=== PATIENT | female | born 1985 | race Caucasian/White ===

== ENCOUNTER → 2016-06-29 | Outpatient (CLI) | payer OTHER ==
[~2016-06-29] MED LIST: ACET50TA PO; ANUS2.5C2 PR; DOCU10ELUD PO; IBUP600T26 PO; LANSOIN TOP; MOM30SS PO; NORCOTAB PO; PRENTAB74 PO
[2016-06-29 19:09] LABS: PROGESTERONE 10.8 NG/ML
== END ==
LOC: M LAB 17:11
PROVIDERS: ATTEND Obstetrics & Gynecology
DX: Z32.01 Encounter for pregnancy test, result positive (principal)

== ENCOUNTER → 2016-07-01 | Outpatient (CLI) | payer OTHER | LOC: M LAB 09:30 | PROVIDERS: ATTEND Obstetrics & Gynecology | DX: Z32.01 Encounter for pregnancy test, result positive (principal) ==

== ENCOUNTER → 2016-08-25 | Outpatient (REF) | payer OTHER | LOC: M LAB REF 17:01 | PROVIDERS: ATTEND Advanced Practice Midwife | DX: Z34.81 Encounter for supervision of other normal pregnancy, first trimester (principal) ==

== ENCOUNTER → 2016-09-15 | Outpatient (CLI) | payer OTHER ==
[2016-09-15 10:25] LABS: ALT/SGPT 21 U/L (12-78); AST/SGOT 15 U/L (15-37); BILIRUBIN,TOTAL 0.2 MG/DL (0.2-1.0); CREATININE FOR GFR 0.55 MG/DL (0.55-1.02); GLOMERULAR FILTRATION RATE > 60.0 (>60); URIC ACID 3.5 MG/DL (2.6-6.0)
[2016-09-15 10:43] LABS: CREATININE CLEARANCE, URINE 265.3 ML/MIN (75-115); CREATININE, SERUM 0.6 MG/DL (0.6-1.0)
== END ==
LOC: M LAB 08:19
PROVIDERS: ATTEND Advanced Practice Midwife
DX: O16.1 Unspecified maternal hypertension, first trimester (principal)

== ENCOUNTER → 2016-09-30 | Outpatient (CLI) | payer OTHER ==
--- NOTE | 2016-09-30 17:22 | REP ---
OB ULTRASOUND: Real-time sonographic evaluation of the gravid uterus is performed. There is a single living intrauterine gestation. Estimated gestational age 19 weeks, EDC 02/24/2017. BPD 44 mm = 19 weeks 1 day HC 161 mm = 18 weeks 6 days AC 137 mm = 19 weeks 1 day FL 30 mm = 19 weeks 2 days HC/AC ratio 1.17, within normal range. Estimated weight 280 grams, 55th percentile. Cervix closed and measures 4.2 cm in length. heart rate 147 beats per minute. SEEN/GROSSLY UNREMARKABLE Lateral ventricles yes Posterior fossa yes Upper lip yes Four-chamber heart yes LVOT yes RVOT no Stomach yes Cord insertion yes Three vessel cord no Kidneys no Bladder yes Spine yes. Limited transverse images. position: Vertex. Placenta: Anterior and grade 0 with no previa or abruption. Amniotic fluid: Within normal limits. Incomplete
== END ==
LOC: M SMT 14:49
PROVIDERS: ATTEND Obstetrics & Gynecology
DX: Z34.82 Encounter for supervision of other normal pregnancy, second trimester (principal); Z3A.19 19 weeks gestation of pregnancy

== ENCOUNTER → 2016-11-03 | Outpatient (CLI) | payer OTHER ==
--- NOTE | 2016-11-03 16:22 | REP ---
Clinical: Anatomical evaluation. Comparison: 09/30/2016 . Findings: Examination demonstrates a single live intrauterine in breech presentation. motion is identified by technologist. Placenta is noted anteriorly and grade zero without evidence for placenta previa or abruption. Amniotic fluid volume is normal. Cervix measures 3.9 cm in length and appears closed. No evidence for nuchal cord. Gestational age by first US 23 weeks 6 days with FLORA 02/24/2017 . Gestational age by current measurements 23 weeks 3 days with FLORA 02/27/2017. FHR equals 147 beats per minute. Estimated weight 654 grams (50th percentile). Anatomical assessment demonstrates normal structures including cranium, choroid plexus, cavum, cerebellum/posterior fossa, facial features, lungs, four-chamber heart/ left ventricular outflow tract, diaphragm, stomach, cord insertion/three-vessel cord, kidneys/bladder, spine, and extremities. Right cardiac ventricular outflow tract is again incompletely evaluated due to positioning. Impression: 1. Single live intrauterine in breech presentation demonstrating appropriate interval growth. 2. With the exception of the right cardiac ventricular outflow tract, in conjunction with prior examination anatomical assessment is complete and normal. Signed by Ajith Wu MD 11/03/2016 04:14 P
== END ==
LOC: M SMT 14:46
PROVIDERS: ATTEND Obstetrics & Gynecology
DX: O10.011 Pre-existing essential hypertension complicating pregnancy, first trimester (principal)

== ENCOUNTER → 2016-11-16 | Outpatient (CLI) | payer OTHER ==
[2016-11-16 19:21] LABS: MEAN CORPUSCULAR HEMOGLOBIN 28.6 pg (27.0-33.0); MEAN CORPUSCULAR HGB CONC 32.9 g/dl (32.0-36.5); MEAN CORPUSCULAR VOLUME 86.8 fl (80.0-96.0); WHITE BLOOD COUNT 9.8 K/mm3 (4.0-10.0)
== END ==
LOC: M SMT 13:08
PROVIDERS: ATTEND Obstetrics & Gynecology
DX: Z34.82 Encounter for supervision of other normal pregnancy, second trimester (principal)

== ENCOUNTER → 2016-12-01 | Outpatient (CLI) | payer OTHER ==
--- NOTE | 2016-12-02 05:10 | REP ---
Clinical: Anatomical evaluation. Comparison: 11/03/2016 . Findings: Examination demonstrates a single live intrauterine in breech presentation. motion is identified by technologist. Placenta is noted anteriorly and grade zero without evidence for placenta previa or abruption. Amniotic fluid volume is normal. Cervix measures 3.7 cm in length and appears closed. Nuchal cord is appreciated. Gestational age by LMP 27 weeks 6 days with FLORA 02/24/2017 . Gestational age by current measurements 27 weeks 0 days with FLORA 03/02/2017 . FHR equals 157 beats per minute. Estimated weight 1047 grams ( 28th percentile). Anatomical assessment demonstrates normal structures including cranium, cavum, cerebellum/posterior fossa, facial features, lungs, four-chamber heart/ventricular outflow tracts, diaphragm, stomach, cord insertion/three-vessel cord, kidneys/bladder, spine, and extremities. Impression: 1. Single live intrauterine in breech presentation demonstrating appropriate interval growth. 2. Nuchal cord noted. 3. In conjunction with prior examination anatomical assessment is complete and normal. Signed by Ajith Wu MD 12/02/2016 05:02 A
== END ==
LOC: M SMT 14:45
PROVIDERS: ATTEND Specialist
DX: O10.011 Pre-existing essential hypertension complicating pregnancy, first trimester (principal); Z3A.00 Weeks of gestation of pregnancy not specified

== ENCOUNTER → 2017-01-02 | Outpatient (CLI) | payer OTHER ==
[~2017-01-02] MED LIST changes: +COLA100C5 PO; +FERR325T3 PO; +IBUP1TAB7 PO; +LEVO75TA4 PO; +PERCOCET PO; +PRENTAB40 PO
--- NOTE | 2017-01-02 15:51 | REP ---
Obstetric ultrasound for biophysical profile and for hypertension. Based on the first ultrasound during this gestation the gestational age is 32 weeks 3 days with an FLORA of 02/24/2017. The heart rate is 33 beats per minute. Subjectively the amniotic fluid volume is normal. The amniotic fluid index is 10.6 (8.5 - 24.3). biophysical profile: breathing two movement and tone Fluid volume two total eight at the There is a single intrauterine gestation in a vertex presentation. The placenta is anterior and fundal with no evidence of placenta previa or abruptio. Placenta demonstrates grade 1 maturity. Umbilical artery Doppler assessment: SD ratio 2.44. Resistive index 0.59 Diastolic flow velocity 17.7 cm/sec. Signed by Kaleb Ribeiro MD 01/02/2017 03:42 P
[2017-01-02 19:37] LABS: FREE T4 0.93 NG/DL (0.76-1.46)
== END ==
LOC: M SMT 14:26
PROVIDERS: ATTEND Obstetrics & Gynecology
DX: O10.011 Pre-existing essential hypertension complicating pregnancy, first trimester (principal)

== ENCOUNTER → 2017-01-30 | Outpatient (CLI) | payer OTHER ==
--- NOTE | 2017-01-30 14:14 | REP ---
Obstetric ultrasound in a patient with preexisting essential hypertension for growth and biophysical profile: There is a single intrauterine gestation in a vertex presentation. heart rate is 147 beats per minute. Placenta is anterior. There is no placenta previa. The amniotic fluid volume subjectively is normal. The amniotic fluid index is 7.3 (7.6 - 24.7). By the ultrasound today gestational age is 36 weeks 0 days with an FLORA of 02/27/2017. By the first ultrasound gestational age 36 weeks 3 days. weight is 2180 grams (6 pounds, 5 ounces). This is the 49th percentile for 36 weeks 3 days. biophysical profile: breathing 2 Movement 2 Tone 2 Amniotic fluid volume 2 Total /8. Umbilical artery Doppler assessment: SD ratio 2.44. Resistive index is 0.58. Diastolic flow velocity 16.0 cm/sec. Signed by Kaleb Ribeiro MD 01/30/2017 02:06 P
== END ==
LOC: M SMT 13:02
PROVIDERS: ATTEND Advanced Practice Midwife
DX: O10.011 Pre-existing essential hypertension complicating pregnancy, first trimester (principal); Z3A.00 Weeks of gestation of pregnancy not specified

== ENCOUNTER → 2017-01-30 | Outpatient (REF) | payer OTHER | LOC: M LAB REF 17:09 | PROVIDERS: ATTEND Obstetrics & Gynecology | DX: O10.011 Pre-existing essential hypertension complicating pregnancy, first trimester (principal) ==

== ENCOUNTER 2017-02-17 05:41 | Inpatient (IN) | payer OTHER ==
[2017-02-17] VITALS (8 sets, daily range): BP systolic 121–136; BP diastolic 57–92
[~2017-02-17] VITALS: Ht 172.7 cm; Wt 120.0 kg
[~2017-02-17 05:41] MED LIST changes: -COLA100C5 PO; -IBUP1TAB7 PO; -PERCOCET PO
[2017-02-17] MEDS ORDERED: LR 1,000 ML IV SCH ×2 (06:00→09:30)
[2017-02-17] MEDS ORDERED: BICITRA 30ML SOLN UDC PO ONE (06:00)
[2017-02-17] MEDS ORDERED: LR 1,000 ML IV ONE (06:00)
[2017-02-17 06:18] LABS: MEAN CORPUSCULAR HEMOGLOBIN 28.4 pg (27.0-33.0); MEAN CORPUSCULAR HGB CONC 34.1 g/dl (32.0-36.5); MEAN CORPUSCULAR VOLUME 83.3 fl (80.0-96.0); RED CELL DISTRIBUTION WIDTH 13.7 % (11.5-14.5); WHITE BLOOD COUNT 10.8 K/mm3 (4.0-10.0)
[2017-02-17] MEDS ORDERED: CLINDAMYCIN 900 MG in APPROPRIATE DILUENT 1 EA IV ONE (06:30)
[2017-02-17] MEDS ORDERED: AZTREONAM 2 GM in D5W MINI-BAG PLUS 100 ML IV ONE (06:30)
[2017-02-17] MEDS ORDERED: OXYTOCIN INJ 10 UNITS/ML VIAL (J2590) As Ordered ONE (07:05)
[2017-02-17] MEDS ORDERED: MORPHINE PRES-FREE INJ 10 MG/10 ML VIAL (J2274) As Ordered ONE (07:09)
[2017-02-17] MEDS ORDERED: NALBUPHINE HCL 10 MG/ML AMP (J2300) IV PRN (07:42)
[2017-02-17] MEDS ORDERED: ONDANSETRON 4MG/2ML VIAL (J2405) IV PRN ×2 (07:42→09:30)
[2017-02-17] MEDS ORDERED: NALOXONE INJ 0.4 MG/1 ML VIAL (J2310) IV PRN ×2 (07:42)
[2017-02-17] MEDS ORDERED: METOCLOPRAMIDE INJ 10MG/2ML VIAL (J2765) IV PRN ×2 (07:42→09:30)
[2017-02-17] MEDS ORDERED: GLYCOPYRROLATE INJ 0.2 MG/ML 2 ML VIAL As Ordered ONE (07:51)
[2017-02-17] MEDS ORDERED: PHENYLephrine HCL 500 MCG/5 ML (100MCG/ML) SYRINGE (J2370) As Ordered ONE (07:51)
[2017-02-17] MEDS ORDERED: ePHEDrine SULFATE 25 MG/5 ML(5MG/ML) SYRINGE As Ordered ONE (07:51)
[2017-02-17 08:39] LABS: CORD GAS ABE V -3.1; CORD GAS HCO3 V 23.4 MEQ/L; CORD GAS O2 SAT V 48.7 %; CORD GAS PCO2 V 46.6 mmHg; CORD GAS PH V 7.318 UNITS; CORD GAS PO2 V 22.7 mmHg; CORD GAS SBC V 20.7 MEQ/L; CORD GAS TCO2 V 24.8 MEQ/L
[2017-02-17 08:40] LABS: CORD GAS ABE A -5.7; CORD GAS HCO3 A 26.4 MEQ/L; CORD GAS O2 SAT A < 15.0 %; CORD GAS PO2 A 12.5 mmHg; CORD GAS TCO2 A 29.1 MEQ/L
[2017-02-17] MEDS ORDERED: fentaNYL 100 MCG/2 ML INJECTION (J3010) As Ordered ONE (08:41)
[2017-02-17] MEDS ORDERED: RHOGAM 300 MCG (1500 IU) INJ (J2790) IM SCH (09:00)
[2017-02-17] MEDS: OXYTOCIN DRIP 30 UNITS in APPROPRIATE DILUENT 1 EA IV SCH ×2 (09:00→12:18)
[2017-02-17] MEDS: LR 1,000 ML IV SCH ×2 (09:00→16:46)
[2017-02-17] MEDS ORDERED: MEASLES,MUMPS,RUBELLA VACCINE INJ (MMR-II) (90707) SC SCH (09:00)
[2017-02-17] MEDS: PRENATAL VITAMINS CHEWABLE TABLET PO SCH (09:00)
[2017-02-17] MEDS ORDERED: PERCOCET 5MG/325MG TAB PO PRN ×2 (09:30→09:45)
[2017-02-17] MEDS ORDERED: MEPERIDINE INJ 25 MG/ML VIAL (J2175) IV PRN (09:30)
[2017-02-17] MEDS ORDERED: fentaNYL 100 MCG/2 ML INJECTION (J3010) IV PRN (09:30)
[2017-02-17] MEDS ORDERED: MOM 30ML SUSPENSION UDC PO PRN (09:45)
[2017-02-17] MEDS ORDERED: DOCUSATE SODIUM 100 MG CAP PO PRN (09:45)
[2017-02-17] MEDS ORDERED: KETOROLAC 30 MG/ML VIAL (J1885) IV SCH (10:00)
[2017-02-17 10:49] LABS: HBSAG L&D NEGATIVE (NEGATIVE)
[2017-02-17] MEDS ORDERED: IBUP1TAB7 PO (11:36)
[2017-02-17] MEDS ORDERED: PERCOCET PO (11:36)
[2017-02-17] MEDS: IBUPROFEN 800 MG TAB PO SCH (11:56)
--- NOTE | 2017-02-17 14:14 | RO ---
DATE OF PROCEDURE: 02/17/2017 PREPROCEDURE DIAGNOSES: 1. Chronic hypertension. 2. Intrauterine at 38+ weeks. 3. Elective repeat lower transverse section. POSTPROCEDURE DIAGNOSES: 1. Chronic hypertension. 2. Intrauterine at 38+ weeks. 3. Elective repeat lower transverse section. PROCEDURE PERFORMED: Repeat lower transverse section. SURGEON: Joyce Ayala MD POULTRY DRESSER: Chino Delaney DO ANESTHESIA: Spinal. ESTIMATED BLOOD LOSS: 500 mL. INTRAVENOUS FLUIDS: 1700 mL lactated Ringer's solution. URINE OUTPUT: 200 mL. PREOPERATIVE ANTIBIOTICS: Azactam and clindamycin. OPERATIVE FINDINGS: Liveborn male infant, scores of 5 and 9, weight of 8 pounds 7 ounces or 3822 grams. Cord gas of 7.1, 7.13, base excess of -5.7 and -3.1, respectively. SPECIMENS: Cord blood and cord gasses. DESCRIPTION OF PROCEDURE: After informed consent was obtained and written consent was reviewed, the patient was brought to the operating room where spinal anesthesia was placed. She was then placed in the supine position with a left lateral tilt. A Sanchez catheter was then placed and set to gravity. She was then prepped and draped in a normal sterile fashion. A time-out in the operating room was then performed identifying the patient, procedure to be performed, as well as drug allergies. Anesthesia was tested and deemed to be adequate. A Pfannenstiel skin incision was then made along the previous skin incision, and this was carried down to the underlying rectus fascia. The fascia was scored and this incision was extended bilaterally. The fascia was then dissected off the underlying rectus muscles both superiorly and inferiorly. The rectus muscles were in midline. The peritoneum was then entered sharply. The vesicouterine peritoneum was then identified, was tented and excised to create a bladder flap. The bladder blade was then placed to retract back the bladder. Next, a curvilinear incision was then made in the lower uterine segment. This incision was extended using bandage scissors. Amniotomy was then performed productive of clear fluid. I made an attempt to deliver the head, at which point, the fetus was felt to be in a transverse position. I then performed an external podalic version, delivering the lower extremities first. The fetus was then delivered down to the level of the scapula with the upper extremities delivered followed by delivery of the head. Cord was clamped times two, was cut. The was taken over to the warmer. Cord blood and gasses were obtained. Placenta was then drained and delivered grossly intact. The uterus was then exteriorized and cleared of all clots and debris. The uterine incision was then closed in two layers using #0 Vicryl first in a running locking fashion, followed by a second layer using #0 Vicryl in a running nonlocking fashion for imbrication. There was a uterine extension, which was repaired separately using #0 Vicryl. Figure-of-8 stitch was also placed along the uterine incision for hemostasis. The abdomen was then suctioned. The uterus was returned in the patients abdomen, was inspected and noted to be hemostatic. The anterior peritoneum was then reapproximated using #3-0 Vicryl. The rectus muscles were reapproximated using #3-Vicryl. Fascia was then closed with #0 Vicryl in a running nonlocking fashion. The subcutaneous tissue was then irrigated and suctioned. Subcutaneous tissue was the reapproximated using #3-0 Vicryl. Several subdermal stitches were placed with #3-0 Vicryl, and the skin was closed with #4-0 Monocryl in a subcuticular fashion. The incision was then cleaned and dried. Mastisol was applied above and below the incision. Steri-Strips were applied over the incision. The incision was dressed. The patient was then taken to recovery in stable condition. Counts were correct. MTDD
[2017-02-17] MEDS: PERCOCET 5MG/325MG TAB PO PRN (14:24)
[2017-02-17] MEDS: KETOROLAC 30 MG/ML VIAL (J1885) IV SCH ×2 (15:24→20:50)
[2017-02-17] MEDS: LEVOTHYROXINE 75MCG TABLET (0.075MG) PO SCH (20:50)
[2017-02-18] MEDS: LR 1,000 ML IV SCH (01:27)
[2017-02-18 02:00] VITALS: BP 123/69
[2017-02-18] MEDS: KETOROLAC 30 MG/ML VIAL (J1885) IV SCH ×2 (03:11→09:27)
[2017-02-18 06:31] VITALS: BP 126/68
[2017-02-18 07:09] LABS: MEAN CORPUSCULAR HEMOGLOBIN 28.9 pg (27.0-33.0); MEAN CORPUSCULAR HGB CONC 34.7 g/dl (32.0-36.5); MEAN CORPUSCULAR VOLUME 83.5 fl (80.0-96.0); RED CELL DISTRIBUTION WIDTH 13.9 % (11.5-14.5); WHITE BLOOD COUNT 10.6 K/mm3 (4.0-10.0)
[2017-02-18] MEDS: PERCOCET 5MG/325MG TAB PO PRN ×2 (07:59→20:41)
[2017-02-18] MEDS: PRENATAL VITAMINS CHEWABLE TABLET PO SCH (07:59)
[2017-02-18 10:08] VITALS: BP 135/68
[2017-02-18] MEDS ORDERED: IBUPROFEN 800 MG TAB PO SCH (12:00)
[2017-02-18 14:00] VITALS: BP 133/67
[2017-02-18] MEDS: IBUPROFEN 800 MG TAB PO SCH (17:12)
[2017-02-18 18:00] VITALS: BP 132/77
[2017-02-18] MEDS: LEVOTHYROXINE 75MCG TABLET (0.075MG) PO SCH (20:40)
[2017-02-18 22:00] VITALS: BP 132/68
[2017-02-19] MEDS: IBUPROFEN 800 MG TAB PO SCH ×2 (01:01→08:21)
[2017-02-19 05:50] VITALS: BP 137/96
[2017-02-19] MEDS: PRENATAL VITAMINS CHEWABLE TABLET PO SCH (08:21)
[2017-02-19] MEDS ORDERED: COLA100C5 PO (10:02)
== END 2017-02-19 11:45 | disposition home or self-care (01) | DRG 540 ==
LOC: M LDI 05:41 → M OBS 11:05
PROVIDERS: ADMIT Obstetrics & Gynecology; ATTEND Obstetrics & Gynecology
PROC: 10D00Z1 Extraction of Products of Conception, Low, Open Approach (ICD-10-PCS; principal; 2017-02-17 07:30)
DX: O32.2XX0 Maternal care for transverse and oblique lie, not applicable or unspecified (principal); O10.02 Pre-existing essential hypertension complicating childbirth; O34.211 Maternal care for low transverse scar from previous cesarean delivery; Z3A.38 38 weeks gestation of pregnancy; O99.284 Endocrine, nutritional and metabolic diseases complicating childbirth; E03.9 Hypothyroidism, unspecified; O99.824 Streptococcus B carrier state complicating childbirth; Z37.0 Single live birth

== ENCOUNTER → 2017-02-22 | Outpatient (REF) | payer MEDICAID, OTHER ==
[~2017-02-22] MED LIST changes: +COLA100C5 PO; +IBUP1TAB7 PO; +PERCOCET PO
== END ==
LOC: M LAB REF 09:50
PROVIDERS: ATTEND Obstetrics & Gynecology
DX: R30.0 Dysuria (principal)

== ENCOUNTER → 2017-08-17 | Outpatient (REF) | payer OTHER | LOC: M LAB REF 12:14 | DX: J02.9 Acute pharyngitis, unspecified (principal) ==

== ENCOUNTER → 2017-10-10 | Outpatient (REF) | payer OTHER | LOC: M LAB REF 12:08 | DX: J02.9 Acute pharyngitis, unspecified (principal) ==

== ENCOUNTER → 2018-02-07 | Outpatient (CLI) | payer OTHER ==
[2018-02-07 14:16] LABS: BASO % 0.4 % (0.0-1.0); EOS # 0.2 10^3/uL (0.0-0.50); HEMATOCRIT 38.5 % (36.0-47.0); HEMOGLOBIN 12.8 g/dl (12.0-15.5); IMMATURE GRANULOCYTE % 0.2 % (0-3.0); LYMPH # 2.2 10^3/uL (1.5-4.5); LYMPH % 24.6 % (24.0-44.0); MEAN CORPUSCULAR HEMOGLOBIN 27.9 pg (27.0-33.0); MEAN CORPUSCULAR HGB CONC 33.2 g/dl (32.0-36.5); MEAN CORPUSCULAR VOLUME 83.9 fl (80.0-96.0); MONO # 0.8 10^3/uL (0.0-0.8); MONO % 8.5 % (0.0-5.0); NEUTROPHILS # 5.7 10^3/uL (1.8-7.7); NEUTROPHILS % 64.3 % (36.0-66.0); PLATELET COUNT, AUTOMATED 234 10^3/uL (150-450); RED BLOOD COUNT 4.59 10^6/uL (4.00-5.40); RED CELL DISTRIBUTION WIDTH 12.7 % (11.5-14.5); WHITE BLOOD COUNT 8.9 10^3/uL (4.0-10.0)
[2018-02-07 14:45] LABS: ALBUMIN 3.9 GM/DL (3.2-5.2); ALBUMIN/GLOBULIN RATIO 0.91 (1.00-1.93); ALKALINE PHOSPHATASE 82 U/L (45-117); ALT/SGPT 24 U/L (12-78); ANION GAP 9 MEQ/L (8-16); AST/SGOT 17 U/L (7-37); BILIRUBIN,TOTAL 0.3 MG/DL (0.2-1.0); BLOOD UREA NITROGEN 12 MG/DL (7-18); CALCIUM LEVEL 8.7 MG/DL (8.5-10.1); CARBON DIOXIDE LEVEL 26 MEQ/L (21-32); CHLORIDE LEVEL 105 MEQ/L (98-107); GLOMERULAR FILTRATION RATE > 60.0 (>60); GLUCOSE, FASTING 93 MG/DL (70-100); POTASSIUM SERUM 3.8 MEQ/L (3.5-5.1); SODIUM LEVEL 140 MEQ/L (136-145); TOTAL PROTEIN 8.2 GM/DL (6.4-8.2)
== END ==
LOC: M LAB 13:28
DX: R10.813 Right lower quadrant abdominal tenderness (principal); R31.9 Hematuria, unspecified; R51 Headache
CPT/HCPCS: 76775

== ENCOUNTER → 2018-02-07 | Outpatient (REF) | payer OTHER | LOC: M LAB REF 12:42 | DX: R31.9 Hematuria, unspecified (principal) ==

== ENCOUNTER → 2018-06-01 | Outpatient (REF) | payer OTHER | LOC: M LAB REF 19:14 | DX: J02.9 Acute pharyngitis, unspecified (principal) | CPT/HCPCS: 87081 ==

== ENCOUNTER → 2018-09-06 | Outpatient (CLI) | payer OTHER ==
[2018-09-06 10:16] LABS: HEMOGLOBIN 12.6 g/dl (12.0-15.5); MEAN CORPUSCULAR HEMOGLOBIN 27.3 pg (27.0-33.0); MEAN CORPUSCULAR HGB CONC 31.5 g/dl (32.0-36.5); MEAN CORPUSCULAR VOLUME 86.6 fl (80.0-96.0); PLATELET COUNT, AUTOMATED 211 10^3/uL (150-450); RED BLOOD COUNT 4.62 10^6/uL (4.00-5.40); WHITE BLOOD COUNT 7.1 10^3/uL (4.0-10.0)
[2018-09-06 10:47] LABS: FREE T4 1.03 NG/DL (0.76-1.46); HCG, SERUM QUANTITATIVE < 1.0 MIU/ML; THYROID STIMULATING HORMONE 0.916 uIU/ML (0.358-3.740)
[2018-09-06 10:50] LABS: PROLACTIN 7.7 NG/ML
== END ==
LOC: M LAB 09:31
PROVIDERS: ATTEND Obstetrics & Gynecology
DX: N92.6 Irregular menstruation, unspecified (principal)

== ENCOUNTER → 2018-09-14 | Outpatient (REF) | payer OTHER | LOC: M LAB REF 13:02 | PROVIDERS: ATTEND Physician Assistant | DX: R31.9 Hematuria, unspecified (principal) ==

== ENCOUNTER → 2018-09-14 | Outpatient (CLI) | payer OTHER ==
--- NOTE | 2018-09-14 14:06 | REP ---
Clinical: Pelvic and perineal pain . Technique: Transabdominal pelvic ultrasound followed by transvaginal examination for better evaluation of the endometrium and adnexa with color Doppler evaluation of the ovaries. Findings: Bladder is unremarkable and measures 12.2 x 6.5 x 9.8 cm . Normal anteverted uterus measures 9.0 x 4.6 x 6.0 cm . The endometrial complex measures 10.3 mm thickness. No discrete uterine or endometrial abnormalities are appreciated. Bilateral ovaries are normal in appearance and vascularity without evidence for torsion. Right ovary measures 3.4 x 2.1 x 1.9 cm ; R I = (venous flow noted) . Left ovary measures 2.9 x 2.7 x 3.0 cm ; R I = 0.43 . No pelvic fluid or adnexal mass lesion . Impression: 1. Essentially normal pelvic ultrasound. Electronically Signed by Ajith Wu MD 09/14/2018 01:57 P
== END ==
LOC: M RAD 12:08
PROVIDERS: ATTEND Obstetrics & Gynecology
DX: R10.2 Pelvic and perineal pain (principal); N85.4 Malposition of uterus

== ENCOUNTER → 2019-05-23 | Outpatient (REF) | payer OTHER ==
[~2019-05-23] MED LIST changes: -ACET50TA PO; -DOCU10ELUD PO; +DOCU5LIQ PO; +MAPA500T17 PO
[2019-05-23 12:39] LABS: ALBUMIN 3.7 GM/DL (3.2-5.2); ALT/SGPT 19 U/L (12-78); BILIRUBIN,TOTAL 0.6 MG/DL (0.2-1.0); BLOOD UREA NITROGEN 14 MG/DL (7-18); CALCIUM LEVEL 8.6 MG/DL (8.5-10.1); CARBON DIOXIDE LEVEL 25 MEQ/L (21-32); CHLORIDE LEVEL 107 MEQ/L (98-107); CHOLESTEROL LEVEL 157 MG/DL (<200); CHOLESTEROL RISK RATIO 2.854 (<5); CREATININE FOR GFR 0.78 MG/DL (0.55-1.30); GLOMERULAR FILTRATION RATE > 60.0 (>60); GLUCOSE, FASTING 99 MG/DL (70-100); HDL CHOLESTEROL 55 MG/DL (>40); LDL CHOLESTEROL 86 MG/DL (<100); NON-HDL-C 102 MG/DL; SODIUM LEVEL 140 MEQ/L (136-145); TOTAL PROTEIN 7.8 GM/DL (6.4-8.2); TRIGLYCERIDES LEVEL 78 MG/DL (<150)
== END ==
LOC: M LAB REF 11:36 → M LABDRWAD 11:36
PROVIDERS: ATTEND Internal Medicine
DX: E03.9 Hypothyroidism, unspecified (principal)

== ENCOUNTER → 2019-06-21 | Outpatient (REF) | payer OTHER ==
[2019-06-21 13:08] LABS: HEMOGLOBIN 12.8 g/dl (12.0-15.5); MEAN CORPUSCULAR HEMOGLOBIN 27.8 pg (27.0-33.0); MEAN CORPUSCULAR HGB CONC 31.2 g/dl (32.0-36.5); MEAN CORPUSCULAR VOLUME 88.9 fl (80.0-96.0); PLATELET COUNT, AUTOMATED 208 10^3/uL (150-450); RED BLOOD COUNT 4.61 10^6/uL (4.00-5.40); WHITE BLOOD COUNT 7.2 10^3/uL (4.0-10.0)
[2019-06-21 13:10] LABS: APPEARANCE, URINE HAZY (CLEAR); BACTERIA, URINE AUTO 1+ (NEGATIVE); BILIRUBIN, URINE AUTO NEGATIVE (NEGATIVE); BLOOD, URINE BLOOD 2+ (NEGATIVE); COLOR, URINE YELLOW (YELLOW); GLUCOSE, URINE (UA) AUTO NEGATIVE (NEGATIVE); KETONE, URINE AUTO NEGATIVE (NEGATIVE); LEUKOCYTE ESTERASE, URINE AUTO NEGATIVE (NEGATIVE); NITRITE, URINE AUTO NEGATIVE (NEGATIVE); PROTEIN, URINE AUTO NEGATIVE (NEGATIVE); RBC, URINE AUTO 2 /HPF (0-3); SPECIFIC GRAVITY URINE AUTO 1.011 (1.002-1.035); SQUAMOUS EPITHELIAL CELL UR AU 2 /HPF (0-6); UROBILINOGEN, URINE AUTO 0.2 mg/dL (0.0-2.0); WBC, URINE AUTO 1 /HPF (0-3)
== END ==
LOC: M LABDRWAD 12:45
PROVIDERS: ATTEND Internal Medicine
DX: R53.83 Other fatigue (principal); E03.9 Hypothyroidism, unspecified

== ENCOUNTER → 2020-02-18 | Outpatient (CLI) | payer OTHER ==
--- NOTE | 2020-03-18 10:57 | REP ---
RIGHT ANKLE SERIES: HISTORY: Pain FINDINGS: 4-views of the right ankle are performed. No acute fracture, dislocation or intrinsic bone disease is seen. The ankle mortise is anatomic. IMPRESSION: Negative examination right ankle. MTDD
== END ==
LOC: M ADAMS 10:28
PROVIDERS: ATTEND Physician Assistant
DX: M25.571 Pain in right ankle and joints of right foot (principal)

== ENCOUNTER → 2020-10-02 | Outpatient (CLI) | payer OTHER ==
--- NOTE | 2020-10-02 09:51 | REP ---
INDICATION: HYPOTHYROIDISM COMPARISON: None. TECHNIQUE: Chung scale and color evaluation of the thyroid gland using the linear high frequency transducer. FINDINGS: The thyroid gland is normal in contour, shape, size, and echogenicity. No nodule/mass or cystic abnormalities are appreciated. Right thyroid lobe measures 5.1 x 1.7 x 1.5 cm. Isthmus measures 3.0 mm in width. Left thyroid lobe measures 4.2 x 1.4 x 1.3 cm. IMPRESSION: No focal thyroid lesions identified. <Electronically signed by Ajith Wu > 10/02/20 [id number]
== END ==
LOC: M RAD 09:21
PROVIDERS: ATTEND Family Medicine
DX: E03.9 Hypothyroidism, unspecified (principal)

== ENCOUNTER → 2020-10-08 | Outpatient (REF) | payer OTHER ==
[2020-10-08 12:44] LABS: BASO # 0.1 10^3/uL (0.0-0.2); BASO % 0.7 % (0.0-1.0); EOS # 0.2 10^3/uL (0.0-0.5); HEMATOCRIT 40.8 % (36.0-47.0); HEMOGLOBIN 13.1 g/dl (12.0-15.5); LYMPH % 26.7 % (24.0-44.0); MEAN CORPUSCULAR HEMOGLOBIN 28.2 pg (27.0-33.0); MEAN CORPUSCULAR HGB CONC 32.1 g/dl (32.0-36.5); MEAN CORPUSCULAR VOLUME 87.7 fl (80.0-96.0); MONO # 0.7 10^3/uL (0.0-0.8); MONO % 9.2 % (2.0-8.0); NEUTROPHILS # 4.6 10^3/uL (1.5-8.5); NEUTROPHILS % 61.3 % (36.0-66.0); PLATELET COUNT, AUTOMATED 250 10^3/uL (150-450); RED BLOOD COUNT 4.65 10^6/uL (4.00-5.40); WHITE BLOOD COUNT 7.5 10^3/uL (4.0-10.0)
[2020-10-08 13:13] LABS: ALBUMIN 3.9 GM/DL (3.2-5.2); ALT/SGPT 22 U/L (12-78); BILIRUBIN,TOTAL 0.3 MG/DL (0.2-1.0); BLOOD UREA NITROGEN 12 MG/DL (7-18); CALCIUM LEVEL 8.6 MG/DL (8.5-10.1); CARBON DIOXIDE LEVEL 28 MEQ/L (21-32); CHLORIDE LEVEL 106 MEQ/L (98-107); CHOLESTEROL LEVEL 175 MG/DL (<200); CHOLESTEROL RISK RATIO 2.966 (<5); CREATININE FOR GFR 0.74 MG/DL (0.55-1.30); FREE T4 1.08 NG/DL (0.76-1.46); GLOMERULAR FILTRATION RATE > 60.0 (>60); GLUCOSE, FASTING 102 MG/DL (70-100); HDL CHOLESTEROL 59 MG/DL (>40); LDL CHOLESTEROL 99 MG/DL (<100); NON-HDL-C 116 MG/DL; POTASSIUM SERUM 4.4 MEQ/L (3.5-5.1); SODIUM LEVEL 138 MEQ/L (136-145); TOTAL PROTEIN 7.8 GM/DL (6.4-8.2); TRIGLYCERIDES LEVEL 86 MG/DL (<150)
[2020-10-08 13:32] LABS: HEMOGLOBIN A1c 5.6 %
== END ==
LOC: M SFHCADAM 08:06
PROVIDERS: ATTEND Family Medicine
DX: E03.9 Hypothyroidism, unspecified (principal); R73.03 Prediabetes

== ENCOUNTER → 2020-10-21 | Outpatient (REF) | payer OTHER | LOC: M WUC 11:18 | PROVIDERS: ATTEND Physician Assistant | DX: R30.0 Dysuria (principal) ==

== ENCOUNTER → 2021-03-31 | Outpatient (CLI) | payer OTHER ==
--- NOTE | 2021-03-31 12:59 | REP ---
INDICATION: PELVIC/PERINEAL PAIN COMPARISON: 09/14/2018 TECHNIQUE: Transvaginal examination with color Doppler evaluation. FINDINGS: Normal anteverted uterus measures 9.7 x 4.2 x 6.0 cm. The endometrial complex measures 6.3 mm thickness. Small amount of nonspecific endocervical fluid noted. Evidence for Caesarean section scar. Bilateral ovaries are normal in appearance and vascularity without evidence for torsion. Right ovary measures 3.6 x 2.6 x 2.2 cm; R I = 0.50. Left ovary measures 3.3 x 2.3 x 2.5 cm; R I = 0.44. No pelvic fluid or adnexal mass lesion. IMPRESSION: Normal pelvic ultrasound. <Electronically signed by Ajith Wu > 03/31/21 [id number]
== END ==
LOC: M RAD 12:05
PROVIDERS: ATTEND Obstetrics & Gynecology
DX: R10.2 Pelvic and perineal pain (principal)

== ENCOUNTER → 2023-07-20 | Outpatient (REF) | payer OTHER ==
[2023-07-20 15:56] LABS: CLOSTRIDIUM DIFFICILE PCR NEGATIVE (NEGATIVE)
== END ==
LOC: M LAB REF 12:49
PROVIDERS: ATTEND Internal Medicine Gastroenterology
DX: R19.7 Diarrhea, unspecified (principal)

== ENCOUNTER 2023-07-25 06:58 | Day surgery (SDC) | payer OTHER ==
[~2023-07-25] VITALS: Ht 172.7 cm; Wt 113.0 kg
[2023-07-25] MEDS: NS 1,000 ML IV ONE (07:16)
[2023-07-25] MEDS ORDERED: propofoL 200 MG/20 ML VIAL As Ordered ONE (08:04)
[2023-07-25] MEDS ORDERED: LIDOCAINE 2% 100MG/5ML SDV (FOR ANES.) As Ordered ONE (08:04)
[2023-07-25 08:06] VITALS: TEMP 96.7
[2023-07-25 08:21] VITALS: BP 130/75; O2SAT 100
== END 2023-07-25 08:27 | disposition home or self-care (01) ==
LOC: M OPP 06:58
PROVIDERS: ATTEND Internal Medicine Gastroenterology
DX: K64.4 Residual hemorrhoidal skin tags (principal); K64.8 Other hemorrhoids; R19.7 Diarrhea, unspecified; Z79.1 Long term (current) use of non-steroidal anti-inflammatories (NSAID); Z79.890 Hormone replacement therapy; Z88.0 Allergy status to penicillin; Z88.2 Allergy status to sulfonamides

== ENCOUNTER → 2023-09-07 | Outpatient (CLI) | payer OTHER ==
[~2023-09-07] MED LIST changes: +PROHANCE 279.3MG/ML 15ML VIAL ONE; +PROHANCE 279.3MG/ML 5ML VIAL ONE
== END ==
LOC: M PLAIMG 09:06
PROVIDERS: ATTEND Internal Medicine Gastroenterology
DX: K86.81 Exocrine pancreatic insufficiency (principal)

== ENCOUNTER → 2024-04-26 | Outpatient (CLI) | payer OTHER ==
[~2024-04-26] MED LIST changes: -PROHANCE 279.3MG/ML 15ML VIAL ONE; -PROHANCE 279.3MG/ML 5ML VIAL ONE
== END ==
LOC: M WHC 09:51
PROVIDERS: ATTEND Obstetrics & Gynecology
DX: R10.2 Pelvic and perineal pain (principal); N92.6 Irregular menstruation, unspecified; N88.8 Other specified noninflammatory disorders of cervix uteri

== ENCOUNTER → 2024-05-10 | Outpatient (CLI) | payer OTHER ==
[2024-05-10 10:51] LABS: BASO % 0.5 % (0.0-1.0); EOS # 0.3 10^3/uL (0.0-0.5); EOS % 3.4 % (0.0-3.0); HEMATOCRIT 39.2 % (36.0-47.0); HEMOGLOBIN 12.7 g/dl (12.0-15.5); LYMPH # 1.9 10^3/uL (1.5-5.0); LYMPH % 23.8 % (24.0-44.0); MEAN CORPUSCULAR HEMOGLOBIN 27.4 pg (27.0-33.0); MEAN CORPUSCULAR HGB CONC 32.4 g/dl (32.0-36.5); MEAN CORPUSCULAR VOLUME 84.7 fl (80.0-96.0); MONO # 0.6 10^3/uL (0.0-0.8); MONO % 7.6 % (2.0-8.0); NEUTROPHILS # 5.1 10^3/uL (1.5-8.5); NEUTROPHILS % 64.6 % (36.0-66.0); PLATELET COUNT, AUTOMATED 209 10^3/uL (150-450); RED BLOOD COUNT 4.63 10^6/uL (4.00-5.40); WHITE BLOOD COUNT 7.9 10^3/uL (4.0-10.0)
[2024-05-10 11:02] LABS: ERYTHROCYTE SEDIMENTATION RATE 29 mm/hr (0-20)
[2024-05-10 11:15] LABS: HEMOGLOBIN A1c 5.7 % (4.0-6.0)
[2024-05-10 11:16] LABS: LIPASE 30 U/L (12-53)
[2024-05-10 11:18] LABS: AMYLASE 62 U/L (30-118)
[2024-05-10 11:19] LABS: ALBUMIN 3.6 G/DL (3.2-5.2); ALKALINE PHOSPHATASE 73 U/L (35-104); ALT/SGPT 20 U/L (7.0-40); AST/SGOT 12 U/L (<34); BILIRUBIN,TOTAL 0.4 MG/DL (0.3-1.2); BLOOD UREA NITROGEN 14 MG/DL (9-23); CALCIUM LEVEL 8.8 MG/DL (8.5-10.1); CARBON DIOXIDE LEVEL 26 MMOL/L (20-31); CHLORIDE LEVEL 107 MMOL/L (98-107); CHOLESTEROL LEVEL 177 MG/DL (<200); CHOLESTEROL RISK RATIO 3.12 (<5); GLOMERULAR FILTRATION RATE > 60.0 (>58); GLUCOSE, FASTING 103 MG/DL (60-100); HDL CHOLESTEROL 56.6 MG/DL (>40); LDL CHOLESTEROL 102.2 MG/DL (<100); NON-HDL-C 120.4 MG/DL; POTASSIUM SERUM 4.5 MMOL/L (3.5-5.1); SODIUM LEVEL 139 MMOL/L (136-145); TOTAL PROTEIN 7.5 G/DL (5.7-8.2); TRIGLYCERIDES LEVEL 91 MG/DL (<150)
[2024-05-10 11:20] LABS: TOTAL 25(OH) VITAMIN D 30.7 NG/ML (20.0-100.0)
[2024-05-10 11:21] LABS: FREE T4 1.24 NG/DL (0.89-1.76)
[2024-05-14 00:38] LABS: IgG P18 AB NON-REACTIVE; IgG P23 AB NON-REACTIVE; IgG P28 AB NON-REACTIVE; IgG P30 AB NON-REACTIVE; IgG P39 AB NON-REACTIVE; IgG P41 AB NON-REACTIVE; IgG P45 AB NON-REACTIVE; IgG P58 AB NON-REACTIVE; IgG P66 AB NON-REACTIVE; IgG P93 AB NON-REACTIVE; IgM P23 AB NON-REACTIVE; IgM P39 AB NON-REACTIVE; IgM P41 AB NON-REACTIVE; LYME IgG WB INTERPRETATION NEGATIVE (NEGATIVE); LYME IgM WB INTERPRETATION NEGATIVE (NEGATIVE)
== END ==
LOC: M WUC 08:29
PROVIDERS: ATTEND Physician Assistant
DX: K80.20 Calculus of gallbladder without cholecystitis without obstruction (principal); E03.9 Hypothyroidism, unspecified; L30.8 Other specified dermatitis; R53.82 Chronic fatigue, unspecified; J32.9 Chronic sinusitis, unspecified

== ENCOUNTER → 2024-05-10 | Outpatient (CLI) | payer OTHER | LOC: M PLAIMG 09:04 | PROVIDERS: ATTEND Physician Assistant | DX: J32.9 Chronic sinusitis, unspecified (principal); J34.89 Other specified disorders of nose and nasal sinuses ==

== ENCOUNTER 2024-07-11 06:08 | Day surgery (SDC) | payer OTHER ==
[~2024-07-11] VITALS: Ht 172.7 cm; Wt 116.6 kg
[~2024-07-11 06:08] MED LIST changes: +AZIT-12 PO
[2024-07-11] MEDS ORDERED: LR 1,000 ML IV SCH (06:35)
[2024-07-11] MEDS ORDERED: LIDOCAINE 2% 100MG/5ML SDV (FOR ANES.) As Ordered ONE (06:52)
[2024-07-11] MEDS ORDERED: ROCURONIUM BROMIDE 50MG/5ML VIAL As Ordered ONE (06:52)
[2024-07-11] MEDS ORDERED: SUGAMMADEX SODIUM 500 MG/5 ML VIAL (BRIDION) As Ordered ONE (06:52)
[2024-07-11] MEDS ORDERED: propofoL 200 MG/20 ML VIAL As Ordered ONE (06:52)
[2024-07-11] MEDS ORDERED: KETOROLAC 60MG 2ML VIAL As Ordered ONE (06:53)
[2024-07-11] MEDS ORDERED: ONDANSETRON 4MG 2ML VIAL As Ordered ONE (06:53)
[2024-07-11] MEDS ORDERED: fentaNYL 100 MCG/2 ML INJECTION As Ordered ONE (06:58)
[2024-07-11] MEDS ORDERED: MIDAZOLAM INJ 2MG/2ML VIAL As Ordered ONE (06:58)
[2024-07-11] MEDS ORDERED: dexmedeTOMIDine (4MCG/ML)200MCG/50ML BTL (PRECEDEX) As Ordered ONE (07:03)
[2024-07-11] MEDS ORDERED: CEFAZOLIN SODIUM IV ONE (07:20)
[2024-07-11] MEDS ORDERED: DEXTROSE 5% IV ONE (07:20)
[2024-07-11] MEDS ORDERED: MINI IV ONE (07:20)
[2024-07-11] MEDS: ceFAZolin SOD 2 GM in IV 1 EA IV ONE (07:30)
[2024-07-11] MEDS ORDERED: ACETAMINOPHEN 1000MG/100ML IV BAG As Ordered ONE (07:42)
[2024-07-11] MEDS ORDERED: HYDROMORPHONE HCL 0.5 MG/ 0.5 ML SYRINGE IV PRN (08:45)
[2024-07-11] MEDS: ONDANSETRON 4MG 2ML VIAL IV PRN (08:51)
[2024-07-11] MEDS: fentaNYL 100 MCG/2 ML INJECTION IV PRN (08:51)
[2024-07-11] MEDS: METOCLOPRAMIDE INJ 10MG/2ML VIAL IV PRN (09:01)
[2024-07-11] MEDS: HYDROMORPHONE HCL 0.5 MG/ 0.5 ML SYRINGE IV PRN (09:11)
[2024-07-11] MEDS: PROMETHAZINE 25MG/ML 1ML VIAL IV ONE (09:19)
[2024-07-11] MEDS: oxyCODONE 5MG TAB PO PRN (10:00)
[2024-07-11 10:12] VITALS: BP 137/79; TEMP 97.7; O2SAT 97
== END 2024-07-11 10:50 | disposition home or self-care (01) ==
LOC: M SDC 06:08
PROVIDERS: ATTEND Surgery
DX: K80.10 Calculus of gallbladder with chronic cholecystitis without obstruction (principal); E03.9 Hypothyroidism, unspecified; Z88.0 Allergy status to penicillin; Z88.2 Allergy status to sulfonamides; Z79.899 Other long term (current) drug therapy
CPT/HCPCS: 47562; 81025; 88304; J0131; J0665; J0690; J1100; J1171; J1885; J2250; J2405; J2550; J2765; J3010; S2900

== ENCOUNTER → 2025-04-07 | Outpatient (REF) | payer OTHER ==
[2025-04-07 13:16] LABS: BASO # 0.0 10^3/uL (0.0-0.2); BASO % 0.6 % (0.0-1.0); EOS # 0.2 10^3/uL (0.0-0.5); EOS % 2.9 % (0.0-3.0); LYMPH # 2.1 10^3/uL (1.5-5.0); LYMPH % 31.4 % (24.0-44.0); MONO # 0.5 10^3/uL (0.0-0.8); MONO % 8.1 % (2.0-8.0); NEUTROPHILS # 3.7 10^3/uL (1.5-8.5); NEUTROPHILS % 56.7 % (36.0-66.0); PLATELET COUNT, AUTOMATED 260 10^3/uL (150-450)
[2025-04-07 13:19] LABS: ALT/SGPT 20 U/L (7.0-40); AST/SGOT 21 U/L (<34); CALCIUM LEVEL 8.9 MG/DL (8.5-10.1); CARBON DIOXIDE LEVEL 25 MMOL/L (20-31); CHLORIDE LEVEL 105 MMOL/L (98-107); CREATININE FOR GFR 0.78 MG/DL (0.55-1.30); GLOMERULAR FILTRATION RATE > 90.0 (>58); POTASSIUM SERUM 4.1 MMOL/L (3.5-5.1); SODIUM LEVEL 141 MMOL/L (136-145)
[2025-04-07 13:20] LABS: TESTOSTERONE 21 NG/DL (14-76)
[2025-04-07 13:21] LABS: FREE T4 1.22 NG/DL (0.89-1.76)
[2025-04-07 13:45] LABS: ESTIMATED AVERAGE GLUCOSE 120.0 MG/DL (60-110)
== END ==
LOC: M SFHCADAM 10:08
PROVIDERS: ATTEND Physician Assistant
DX: L64.9 Androgenic alopecia, unspecified (principal); Z68.39 Body mass index [BMI] 39.0-39.9, adult; R53.82 Chronic fatigue, unspecified; E03.9 Hypothyroidism, unspecified; J32.9 Chronic sinusitis, unspecified; J30.2 Other seasonal allergic rhinitis

== ENCOUNTER → 2025-04-07 | Outpatient (CLI) | payer OTHER | LOC: M ADAMS 10:13 | PROVIDERS: ATTEND Physician Assistant | DX: M79.671 Pain in right foot (principal); L64.9 Androgenic alopecia, unspecified; Z68.39 Body mass index [BMI] 39.0-39.9, adult; R53.82 Chronic fatigue, unspecified; E03.9 Hypothyroidism, unspecified; J32.9 Chronic sinusitis, unspecified; J30.2 Other seasonal allergic rhinitis ==

== ENCOUNTER → 2025-06-10 | Outpatient (CLI) | payer OTHER ==
[2025-06-10 13:51] LABS: LUTEINIZING HORMONE 5.9 mIU/ML; TOTAL 25(OH) VITAMIN D 37.9 NG/ML (20.0-100.0)
[2025-06-10 13:54] LABS: TESTOSTERONE 28 NG/DL (14-76)
[2025-06-10 13:55] LABS: FREE T4 1.13 NG/DL (0.89-1.76)
[2025-06-11 04:05] LABS: CORTISOL AM 13.6 UG/DL (4.3-22.4)
[2025-06-11 04:10] LABS: THYROID PEROXIDASE ANTIBODY > 1300.0 U/ML (<60.0)
[2025-06-13 15:43] LABS: ANA PATTERN 2 Nuclear, Speckled; ANA TITER 2 1:40 titer (NEGATIVE); DEHYDROEPIANDROSTERONE SULFATE 104 mcg/dL (15-205)
== END ==
LOC: M LABDRWAD 08:21
PROVIDERS: ATTEND Nurse Practitioner Family
DX: R63.5 Abnormal weight gain (principal); E03.9 Hypothyroidism, unspecified